=== PATIENT | female | born 1980 | race Hispanic/Latino ===

== ENCOUNTER 2018-07-02 11:40 | Emergency (ER) | payer BC ==
[~2018-07-02 11:40] MED LIST: Iopamidol 370 76% 100 ML VIAL ONE
[2018-07-02 12:16] LABS: Bilirubin Negative (Negative); Blood, Urine Moderate (Negative); Clarity Slightly Cloudy (Clear); Glucose, Urine (Dipstick) >=1000 mg/dL (Negative); Leukocyte Negative (Negative); Nitrite Negative (Negative); Protein, Urine (Dipstick) 100 mg/dL (Neg-Trace); Specific Gravity, Urine 1.025 (1.005-1.030); Urobilinogen 0.2 mg/dL (0.2-1.0); pH, Urine 5.5 (5.0-9.0)
[2018-07-02 12:27] LABS: Bacteria/HPF 2+ HPF (None Seen); WBC/HPF 21-50 HPF (0-3); Yeast-All Forms Rare HPF (None Seen)
[2018-07-02 12:55] LABS: Pregnancy Test - Urine (BHCG) Negative (Negative); Pregu Control Background? CLEAR/WHITE (CLR/WHITE); Pregu Control Bar Appear? YES (CONTROL BAR); Specific Gravity 1.025 (1.002-1.036)
[2018-07-02 13:09] LABS: ALT (SGPT) 21 U/L (8-55); AST (SGOT) 10 U/L (5-34); Albumin 4.7 g/dL (3.5-5.0); Alkaline Phosphatase 78 U/L (40-150); Anion Gap 13 mmol/L (10-20); BUN (Urea Nitrogen) 11 mg/dL (7.0-18.7); Bilirubin, Total 0.4 mg/dL (0.2-1.2); Calc. Creatinine Clearance 0 mL/min (70-130); Calcium 10.5 mg/dL (7.8-10.44); Carbon Dioxide 24 mmol/L (22-29); Chloride 104 mmol/L (98-107); Estimated GFR-MDRD Greater than 90; Globulin 2.8 g/dL (2.4-3.5); Glucose 80 mg/dL (70-105); Lipase 175 U/L (8-78); Potassium 3.4 mmol/L (3.5-5.1); Protein, Total 7.5 g/dL (6.0-8.3); Sodium 138 mmol/L (136-145)
[2018-07-02 13:26] LABS: Hemoglobin 15.5 g/dL (12.0-16.0); Mean Corpuscular HGB CONC 33.1 g/dL (32.0-36.0); Mean Corpuscular Hemoglobin 30.3 pg (27.0-31.0); Mean Corpuscular Volume 91.6 fL (78.0-98.0); Mean Platelet Volume 11.7 fL (7.4-10.4); Platelet Count 166 thou/uL (130-400); White Blood Cell (WBC) Count 10.3 thou/uL (4.8-10.8)
[2018-07-02 13:28] LABS: Lymphocytes 30 % (21-51); MDiff Complete? YES; Monocytes 10 % (0-10); Neutrophil 54 % (42-75); Reactive Lymphocytes 6 % (0-10)
--- NOTE | 2018-07-02 13:59 | CT ---
CT ABDOMEN AND PELVIS WITH CONTRAST: INDICATIONS: Pain with progression of intensity, nausea, vomiting, and diarrhea. FINDINGS: The lung bases are clear. The liver and spleen are unremarkable. No pancreatic inflammation. Punct ate hypoattenuation of the anterior left kidney is too small to definitively characterize. The right kidney is unremarkable. No adrenal mass is seen bilaterally. The bowel is incompletely evaluated w ithout enteric contrast. There is no free air or portal vein gas. The abdominal aorta is normal in caliber. There is heterogeneity, nonspecific, of the soft tissues of the pelvis bilaterally. This c ould relate to residua from a partial hysterectomy or a small heterogeneous uterus, difficult to full y assess on the basis of this exam. Correlate with the patient's surgical history and, if necessary, a pelvic ultrasound may be obtained for further characterization. IMPRESSION: 1. Limited evaluation of the bowel without enteric contrast. 2. No acute abnormality of the solid abdominal organs. POS: HERNANDEZ
== END 2018-07-02 14:08 | disposition home or self-care (01) ==
LOC: NAV ERS 11:40
DX: N39.0 Urinary tract infection, site not specified (principal); R10.32 Left lower quadrant pain; E10.9 Type 1 diabetes mellitus without complications; J45.909 Unspecified asthma, uncomplicated; F17.210 Nicotine dependence, cigarettes, uncomplicated; Z79.899 Other long term (current) drug therapy; Z79.4 Long term (current) use of insulin
CPT/HCPCS: 74177; 80053; 81003; 81015; 81025; 83690; 85025; 87086

== ENCOUNTER 2018-07-20 05:59 | Emergency (ER) | payer BC ==
[2018-07-20] MEDS ORDERED: Acetaminophen/Codeine 30-300mg Tablet ONE (06:33)
[2018-07-20] MEDS ORDERED: Pantoprazole 40 MG VIAL ONE (06:33)
[2018-07-20 06:52] LABS: #Eosinphils 0.1 thou/uL (0.0-0.7); #Lymphocytes 1.4 thou/uL (1.20-3.40); #Monocytes 0.6 thou/uL (0.11-0.59); #Neutrophils 6.9 thou/uL (1.40-6.50); %Basophils 0.4 % (0.0-1.0); %Eosinophils 1.2 % (0.0-10.0); %Lymphocytes 15.4 % (21.0-51.0); %Monocytes 6.6 % (0.0-10.0); %Neutrophils 76.4 % (42.0-75.0); Hemoglobin 12.7 g/dL (12.0-16.0); Mean Corpuscular HGB CONC 34.1 g/dL (32.0-36.0); Mean Corpuscular Volume 90.9 fL (78.0-98.0); Mean Platelet Volume 10.9 fL (7.4-10.4); Platelet Count 141 thou/uL (130-400); Red Blood Cell (RBC) Count 4.12 mill/uL (4.20-5.40)
[2018-07-20 07:04] LABS: ALT (SGPT) 39 U/L (8-55); AST (SGOT) 27 U/L (5-34); Albumin 3.9 g/dL (3.5-5.0); Alkaline Phosphatase 72 U/L (40-150); Anion Gap 15 mmol/L (10-20); BUN (Urea Nitrogen) 5 mg/dL (7.0-18.7); Bilirubin, Total 0.6 mg/dL (0.2-1.2); Calc. Creatinine Clearance 0 mL/min (70-130); Calcium 9.2 mg/dL (7.8-10.44); Carbon Dioxide 17 mmol/L (22-29); Chloride 108 mmol/L (98-107); Estimated GFR-MDRD Greater than 90; Globulin 2.3 g/dL (2.4-3.5); Glucose 268 mg/dL (70-105); Lipase 17 U/L (8-78); Protein, Total 6.2 g/dL (6.0-8.3); Sodium 137 mmol/L (136-145)
[2018-07-20 07:08] LABS: Potassium 2.8 mmol/L (3.5-5.1)
[2018-07-20] MEDS ORDERED: Potassium Chloride 20 MEQ TAB ONE (07:28)
== END 2018-07-20 07:42 | disposition home or self-care (01) ==
LOC: NAV ERS 05:59
DX: G89.18 Other acute postprocedural pain (principal); E87.6 Hypokalemia; R10.10 Upper abdominal pain, unspecified; E10.9 Type 1 diabetes mellitus without complications; F17.210 Nicotine dependence, cigarettes, uncomplicated; J45.909 Unspecified asthma, uncomplicated; E78.5 Hyperlipidemia, unspecified; Z79.4 Long term (current) use of insulin; Z79.899 Other long term (current) drug therapy
CPT/HCPCS: 80053; 83690; 85025; 96374; C9113

== ENCOUNTER 2018-11-05 02:52 | Emergency (ER) | payer BC | END 2018-11-05 03:13 | disposition home or self-care (01) | LOC: NAV ERS 02:52 | DX: T63.481A Toxic effect of venom of other arthropod, accidental (unintentional), initial encounter (principal); E10.9 Type 1 diabetes mellitus without complications; E78.5 Hyperlipidemia, unspecified; J45.909 Unspecified asthma, uncomplicated; F17.210 Nicotine dependence, cigarettes, uncomplicated; Z79.899 Other long term (current) drug therapy | CPT/HCPCS: 99283 ==

== ENCOUNTER 2019-09-04 17:49 | Emergency (ER) | payer BC | END 2019-09-04 18:12 | disposition home or self-care (01) | LOC: NAV ERS 17:49 | DX: M67.431 Ganglion, right wrist (principal); E10.9 Type 1 diabetes mellitus without complications; E78.5 Hyperlipidemia, unspecified; E78.00 Pure hypercholesterolemia, unspecified; J45.909 Unspecified asthma, uncomplicated; Z79.899 Other long term (current) drug therapy; Z79.4 Long term (current) use of insulin | CPT/HCPCS: 99283 ==